=== PATIENT | female | born 1945 | race Caucasian/White ===

== ENCOUNTER 2019-03-15 07:30 | Inpatient (IN) | payer OTHER ==
[~2019-03-15] VITALS: Ht 147.3 cm; Wt 65.8 kg
[2019-03-15] MEDS ORDERED: GABAPENTIN100 M2 PO (08:01)
[2019-03-15] MEDS ORDERED: TOPCARE ASPIRIN81 M1 PO (08:01)
[2019-03-15] MEDS ORDERED: COZAAR100 MG PO (08:02)
[2019-03-15] MEDS ORDERED: LIPI20 PO (08:02)
[2019-03-15] MEDS ORDERED: PROTONIX40 MG PO (08:02)
[2019-03-15] MEDS ORDERED: CALCIUM/VITAMIN1 TA2 PO (08:03)
[2019-03-15] MEDS ORDERED: VASCEPA1 GM PO (08:04)
[2019-03-15] MEDS ORDERED: FEMARA2.5 MG PO (08:04)
[2019-03-15] MEDS ORDERED: ULTRAM50 MG PO (08:05)
[2019-03-15] MEDS ORDERED: COLACE100 MG PO (08:05)
[2019-03-15 08:06] VITALS: BP 143/68
--- NOTE | 2019-03-15 16:32 | NUR ---
PATIENT ARRIVED TO FLOOR VIA BED WITH MARIO SPENCE. FAMILY AT BEDSIDE. NO COMPLAINTS OF PAIN AT THIS TIME. INSTRUCTED PATIENT ON USE OF CALL LIGHT.
[2019-03-15 16:36] VITALS: BP 132/69
--- NOTE | 2019-03-15 16:39 | NUR ---
RECEIVED PT FROM OR VIA FLAKITA. ORIENTED PT TO ROOM AND SURROUNDINGS. IV NOTED TO RFA PATENT AND INTACT. INSTRUCTED PT ON THE USE OF CALL LIGHT FOR ASSISTANCE. ENDORSED PT TO PRIMARY NURSE ALICIA
--- NOTE | 2019-03-15 17:07 | NUR ---
PT PETER IN TO EVALUATE PATIENT. FAMILY AT BEDSIDE TO TRANSLATE.
--- NOTE | 2019-03-15 18:06 | NUR ---
PATIENT SEEN AMBULATING IN HALLWAY WITH PT MEDIA PRODUCTION SUPPORT MANAGER. PATIENT RETURNED TO CHAIR W ASSIST. PATIENT STATES SHE IS FEELING A LITTLE BIT OF PAIN BUT WILL NOTIFY STAFF FOR PAIN CONTROL. PATIENT AND FAMILY AWARE. WILL ENDORSE TO ONCOMING NURSE. CALL LIGHT AT BEDSIDE AT THIS TIME.
[2019-03-15 19:40] VITALS: BP 133/69
--- NOTE | 2019-03-15 19:54 | NUR ---
PATIENT RECEIVED IN BED AWAKE,ALERT AND ORIENTED X4, SPEECH CLEAR DENIED CONTRERAS, [place] SPEAKING BUT ABLE TO COMMUNICATE NEEDS VIA GESTURES AND ALSO FAMILY INTERPRETING. BREATHING EVEN AND UNLABORED BS CLEAR DIMINISHED BASES, FOUND ON ROOM AIR SAT 98%. DENIED CHEST PAINS, VA=[id number], MED/SURG PATIENT. IV SITE TO LFA PATENT AND INTACT. PATIENT IS S/SP RT TOTAL HIP REPLACEMENT DRESSING CDI, PATIENT STATED 3/10 RT HIP SURGICAL PAIN, INFORMED ABOUT PAIN MANAGEMENT. WAS UP WITH PT AND TOLERATED IT WELL PER AM NURSE, WALKER AT BEDSIDE AID IN AMBULATING, PATIENT ABLE TO WIGGLE TOES AND SMALLWOOD FOOT, PULSES STRONG AND PALPABLE DENIED NUMBNESS AND TINGLING SENSATION, SCD APPLIED TO BLE FOR DVT PROPHYLAXIS. SAFETY/FALL PRECAUTIONS MAINTAINED. WILL CONTINUE TO MONITOR. FAMILY WILL BE STAYING TONIGHT.
--- NOTE | 2019-03-15 21:34 | NUR ---
SCHEDULED MED ADMINISTERED THIS TIME,PT INFORMED ABOUT EACH MEDS ACTIONS AND PURPOSES PRIOR. TOOK PILLS WELL.ALSO COMPLAINED OF RT HIP POST SURGICAL PAIN RATED AT 5/10 MEDICATED PRN AND MADE COMFORTABLE. ABDUCTOR PILLOW APPLIED THIS TIME.
--- NOTE | 2019-03-15 22:20 | NUR ---
PATIENT CHECKED THIS TIME STATED PAIN IS AT 2/10 SUBSIDING AND BEARABLE. REMAINED COMFORTABLE.
--- NOTE | 2019-03-16 00:17 | NUR ---
PATIENT ASSISTED OOB TO THE BATHROOM FOR HER NECESSITIES, AMBULATED WITH AID OF WALKER, WEIGHT BEARING TO LOWER EXTREMITY TOLERATED, PATIENT VOIDED WITHOUT DIFF. ASSISTED BACK IN BED AFTERWARDS, RE APPLIED SCD AND PLACED ABDUCTOR PILLOW.WILL CONTINUE TO MONITOR.
--- NOTE | 2019-03-16 03:54 | NUR ---
patient assisted oob to the br,assisted with aid of walker, slow steady gait, tolerated activity, voided without diff.assisted back in bed, and reapplied abductor pillow and scd. claimed pain at 3/10 offered pain meds but stated pain is bearable.
[2019-03-16 05:15] VITALS: BP 104/58; BP 132/79
--- NOTE | 2019-03-16 05:21 | NUR ---
PATIENT MEDS ADMINISTERED THIS TIME, PATIENT INFORMED ABOUT MED ACTIONS AND PURPSOE. PATIENT ALSO COMPLAINED OF RT HIP PAIN RATED AT 5/10 MEDICATED PRN AND MADE COMFORTABLE. WILL MONITOR EFFECTIVENESS.
--- NOTE | 2019-03-16 06:31 | NUR ---
PATIENT HAD A COMFORTABLE NIGHT STATED, WAS ASSISTED OOB TO THE BATHROOM, TOLERATED AMBULATION WITH MIN ASSIST WITH AID OF WALKER, ABDUCTOR PILLOW AND SCD USED DURING THE SHIFT, WAS MEDICATED X2 WITH NORCO FOR COMPLAINT OF PAIN RECEIVED RELIEF. IV SITE NO SIGN OF INFILTRATION. VOIDED WITHOUT DIFF. RECEIVED LAST DOSE OF ANCEF THIS AM. SAFETY PRECAUTIONS MAINTAINED. WILL ENDORSE CONTINUITY OF CARE TO INCOMING NURSE.
[2019-03-16 06:35] LABS: CALCIUM 9.1 mg/dL (8.5-10.1); CARBON DIOXIDE 25.4 mmol/L (21-32); CHLORIDE SERUM 108 mmol/L (98-107); CREATININE SERUM 0.9 mg/dL (0.6-1.0); GLUCOSE SERUM 126 mg/dL (74-106); POTASSIUM SERUM 4.8 mmol/L (3.5-5.1); SODIUM SERUM 143 mmol/L (136-145)
[2019-03-16 06:47] LABS: BASOPHIL % 0.1 % (0-2); PLATELET COUNT 166 x10^3mcL (130-400); RED CELL DISTRIBUTION WIDTH 14.2 % (11.5-14.5)
--- NOTE | 2019-03-16 07:00 | NUR ---
RECEIVED BEDSIDE REPORT FROM MOTION PICTURE FILM EXAMINER NURSE AT THIS TIME. PATIENT RESTING COMFORTABLY IN BED AT THIS TIME. FAMILY MEMBER AT BEDSIDE. BREATHING EVEN AND UNLABORED. NO RESPIRATORY DISTRESS OR DISCOMFORT NOTED. PATIENT DENIES CHEST PAIN/PRESSURE AT THIS TIME. HIP DRESSING CLEAN DRY AND INTACT. ABDUCTOR PILLOW IN PLACE. IV PATENT AND INTACT. ALL QUESTIONS AND CONCERNS ADDRESSED. ALL NEEDS ATTENDED TO. WILL CONTINUE TO MONITOR
--- NOTE | 2019-03-16 07:11 | NUR ---
BEDSIDE REPORT AND INTRODUCTION PERFORMED WITH INCOMING NURSE ISA.
[2019-03-16] MEDS ORDERED: ECO81 PO (08:29)
[2019-03-16] MEDS ORDERED: ACETAMINOPHEN-H1 TA1 PO (08:29)
[2019-03-16 09:12] VITALS: BP 127/59
[2019-03-16 10:36] VITALS: BP 127/59
--- NOTE | 2019-03-16 10:45 | NUR ---
PATIENT STABLE TO BE DISCHARGED TO HOME. DISCHARGE INSTRUCTIONS GIVEN WELL EDUCATION. INSTRUCTED PATIENT ABOUT FOLLOW UP APPOINTMENT. PATIENT VERBALIZES UNDERSTANDING. IV REMOVED WITH CATH INTACT. ID BANDS REMOVED. ALL BELONGINGS WITH PATIENT. ALL QUESTIONS AND CONCERNS ADDRESSED. ALL NEEDS ATTENDED TO. NO DISCHARGE PHOTOGRAPH TAKEN DUE TO DRESSING BEING CLEAN DRY AND INTACT AND TO BE REMOVED BY DR GILLESPIE. PATIENT TO BE ESCORTED DOWN TO THE LOBBY BY ANNMARIE
== END 2019-03-16 10:50 | disposition home or self-care (01) | DRG 470 ==
LOC: MU 07:37 → DU 10:30 → MU 16:33
PROVIDERS: ADMIT Orthopaedic Surgery
PROC: 0SR90JZ Replacement of Right Hip Joint with Synthetic Substitute, Open Approach (ICD-10-PCS; principal; 2019-03-15 10:30)
DX: M16.11 Unilateral primary osteoarthritis, right hip (principal); I10 Essential (primary) hypertension; E11.65 Type 2 diabetes mellitus with hyperglycemia; Z85.3 Personal history of malignant neoplasm of breast
CPT/HCPCS: 82962; 97116-GP; 97530-GP; C1713; C1776; C9113; G0378; J0690; J1100; J1885; J2270; J2704; J3010; J3490; J7030; J7120

== ENCOUNTER 2019-03-19 12:35 | Emergency (ER) | payer OTHER ==
[~2019-03-19] VITALS: Ht 160 cm; Wt 68.0 kg
[~2019-03-19 12:35] MED LIST: ACETAMINOPHEN-H1 TA1 PO; CALCIUM/VITAMIN1 TA2 PO; COLACE100 MG PO; COZAAR100 MG PO; ECO81 PO; FEMARA2.5 MG PO; GABAPENTIN100 M2 PO; LIPI20 PO; PROTONIX40 MG PO; TOPCARE ASPIRIN81 M1 PO; ULTRAM50 MG PO; VASCEPA1 GM PO
[2019-03-19 13:09] VITALS: Ht 160 cm; Wt 68.0 kg
[2019-03-19 15:37] VITALS: BP 109/61
== END 2019-03-19 15:37 | disposition home or self-care (01) ==
LOC: ED 12:35
DX: R22.41 Localized swelling, mass and lump, right lower limb (principal); I10 Essential (primary) hypertension; E78.00 Pure hypercholesterolemia, unspecified; Z98.890 Other specified postprocedural states